=== PATIENT | female | born 1950 | race Two or more races ===

== ENCOUNTER → 2016-05-20 | Outpatient (CLI) | payer MEDICARE, BC, OTHER ==
[~2016-05-20] MED LIST: /PANT40TA OR; /WARF25TA PO; /WARF5TA PO; ACET500C OR; CALCIUM 1000 MG PO; CELE100C OR; COLA100C2 PO; METHACHOLINE KIT (J7674) INH ONE; MILKSUS PO; MULTIVIT PO; NEUR400C PO; PERC5TAB8 PO; PHEN30TA2 OR; PHEN30TA2 PO; PHEN60TA PO; [UNRECOGNIZED DRUG - OTHER] PO; stool softener PO
== END ==
LOC: M CARPUL 13:07
PROVIDERS: ATTEND Internal Medicine Pulmonary Disease
DX: R05 Cough (principal)
CPT/HCPCS: 94070; 95070; J7674

== ENCOUNTER → 2016-05-29 | Outpatient (CLI) | payer OTHER ==
[~2016-05-29] MED LIST changes: -METHACHOLINE KIT (J7674) INH ONE
== END ==
LOC: M LRY 13:37
PROVIDERS: ATTEND Physical Medicine & Rehabilitation
DX: M47.892 Other spondylosis, cervical region (principal)

== ENCOUNTER → 2016-09-30 | Outpatient (CLI) | payer MEDICARE, BC, OTHER ==
[~2016-09-30] MED LIST changes: +E-Z-GAS II EFFERVESCENT PACKET (SODIUM BICARB./CITRIC ACID/SIMETHICONE) As Ordered ONE; +E-Z-HD 98% w/w 340GM SUSP BTL As Ordered ONE; +E-Z-PAQUE 96% w/w SUSP 176GM BTL As Ordered ONE
--- NOTE | 2016-09-30 19:29 | REP ---
UPPER GI, AIR CONTRAST: The procedure was performed under the direct supervision of Dr. Rodrigues. The images were reviewed with Dr. Rodrigues. The video engineer film shows no organomegaly or pathological masses. The intestinal gas pattern is nonspecific. There is levoscoliosis. There are surgical clips noted in the right upper quadrant. Liquid barium and gas-producing granules were given in the erect position as well as liquid barium in the prone oblique position in order to perform a double contrast upper GI examination. The oral and pharyngeal stages of deglutition are unremarkable. Esophageal transport is prompt and efficient and there is no esophagitis, stricture or mucosal ring. There is a moderate sized sliding type hiatal hernia present. There is gastroesophageal reflux demonstrated to the level of the thoracic inlet. The stomach grant are normally outlined. There is a small gastric diverticulum seen in the fundus. There is no gastritis, neoplasm or ulcer disease. The duodenal grant are normally outlined. The mucosal folds are smooth and regular. There is no duodenitis, pancreatitis, peptic ulcer disease or neoplasm. The visualized portion of the proximal small bowel appears normal in course and caliber. IMPRESSION: 1. There is a moderate sized sliding type hiatal hernia present. There is gastroesophageal reflux demonstrated to the level of the thoracic inlet. 2. There is a small gastric diverticulum seen in the fundus of the stomach. 3 minutes and 27 seconds of fluoroscopy time was utilized for this procedure. Reviewed by MERI Adamson 09/30/2016 07:34 PEdited and Signed by Cameron Rodrigues MD 10/01/2016 09:03 A
== END ==
LOC: M RAD 09:42
PROVIDERS: ATTEND Nurse Practitioner Family
DX: R13.14 Dysphagia, pharyngoesophageal phase (principal)

== ENCOUNTER 2017-02-17 10:50 | Outpatient (CLI) | payer MEDICARE, BC, OTHER ==
[~2017-02-17] VITALS: Ht 152.4 cm; Wt 82.6 kg
[~2017-02-17 10:50] MED LIST changes: +BREO1INH INH; +DULO1CAP3 PO; -E-Z-GAS II EFFERVESCENT PACKET (SODIUM BICARB./CITRIC ACID/SIMETHICONE) As Ordered ONE; -E-Z-HD 98% w/w 340GM SUSP BTL As Ordered ONE; -E-Z-PAQUE 96% w/w SUSP 176GM BTL As Ordered ONE; +OMEP40CA2 PO; +PROAAER10 INH
[2017-02-17] MEDS ORDERED: NS 1,000 ML IV ONE (11:00)
[2017-02-17] MEDS ORDERED: LIDOCAINE 2% INJ 100 MG/5 ML SDV (FOR ANES.) As Ordered ONE (11:32)
[2017-02-17] MEDS ORDERED: PROPOFOL 200 MG/20 ML VIAL As Ordered ONE (11:32)
--- NOTE | 2017-02-17 11:49 | ROOR ---
Patient Name: Gia Ortiz Procedure Date: 02/17/2017 11:33 AM Date of : 1950 Age: 66 Room: [facility] Gender: Female Note Status: Finalized Procedure: Upper Endoscopy + Biopsies Indications: Heartburn, Follow-up of Parker's esophagus Providers: Andi Baugh MD Referring MD: DARWIN AGUILAR MD Requesting Provider: Medicines: Monitored Anesthesia Care Complications: No immediate complications. Procedure: Pre-Anesthesia Assessment: - The heart rate, respiratory rate, oxygen saturations, blood pressure, adequacy of pulmonary ventilation, and response to care were monitored throughout the procedure. The Endoscope was introduced through the mouth, and advanced to the second part of duodenum. The upper GI endoscopy was accomplished without difficulty. The patient tolerated the procedure well. Findings: The Z-line was irregular and was found 30 cm from the incisors. Multiple biopsies were obtained with cold forceps for evaluation to rule out Parker's Esophagus randomly at the gastroesophageal junction. A large hiatal hernia was present. No other significant abnormalities were identified in a careful examination of the stomach. The exam of the duodenum was otherwise normal. Impression: - Z-line irregular, 30 cm from the incisors. - Large hiatal hernia. - Multiple biopsies were obtained at the gastroesophageal junction. - The examination was otherwise normal. Recommendation: - Patient has a contact number available for emergencies. The signs and symptoms of potential delayed complications were discussed with the patient. Return to normal activities tomorrow. Written discharge instructions were provided to the patient. - High fiber diet. - Discharge patient to home. - Follow an antireflux regimen. - Continue present medications. - Await pathology results. - Telephone GI clinic for pathology results in 1 week. - Return to referring physician. - The findings and recommendations were discussed with the patient's family. Andi Baugh MD Andi Baugh MD 02/17/2017 11:49:27 AM This report has been signed electronically. Number of Addenda: 0 Note Initiated On: 02/17/2017 11:33 AM Estimated Blood Loss: Estimated blood loss: none.
[2017-02-17 12:20] VITALS: BP 134/82
== END 2017-02-17 12:40 | disposition home or self-care (01) ==
LOC: M OPP 10:50
PROVIDERS: ATTEND Internal Medicine Gastroenterology
DX: R12 Heartburn (principal); K31.89 Other diseases of stomach and duodenum; K22.8 Other specified diseases of esophagus; K44.9 Diaphragmatic hernia without obstruction or gangrene; K21.9 Gastro-esophageal reflux disease without esophagitis; K57.92 Diverticulitis of intestine, part unspecified, without perforation or abscess without bleeding; R56.9 Unspecified convulsions; M19.90 Unspecified osteoarthritis, unspecified site; M54.9 Dorsalgia, unspecified; K82.9 Disease of gallbladder, unspecified; Z78.0 Asymptomatic menopausal state; J45.909 Unspecified asthma, uncomplicated; Z96.653 Presence of artificial knee joint, bilateral; Z90.89 Acquired absence of other organs; Z88.8 Allergy status to other drugs, medicaments and biological substances; Z88.5 Allergy status to narcotic agent; Z88.3 Allergy status to other anti-infective agents; Z91.040 Latex allergy status; Z79.899 Other long term (current) drug therapy

== ENCOUNTER 2017-02-19 19:26 | Emergency (ER) | payer MEDICARE, BC, OTHER ==
[~2017-02-19] VITALS: Ht 152.4 cm; Wt 80.9 kg
[2017-02-19 19:27] VITALS: BP 157/71
[2017-02-19] MEDS ORDERED: CEPHALEXIN 500 MG CAP PO ONE (22:30)
[2017-02-19] MEDS ORDERED: ADACEL/BOOSTRIX VACCINE (DIPHTH/PERTUSS/ACELL/TETANUS)0.5ML SYR (90715) IM ONE (22:30)
[2017-02-19] MEDS ORDERED: LIDOCAINE 2% MDV 20 ML VIAL SC ONE (22:30)
[2017-02-19] MEDS ORDERED: KEFL500C17 PO (22:45)
== END 2017-02-19 23:04 | disposition home or self-care (01) ==
LOC: M ED 19:26
DX: S60.452A Superficial foreign body of right middle finger, initial encounter (principal); W45.8XXA Other foreign body or object entering through skin, initial encounter; Y92.019 Unspecified place in single-family (private) house as the place of occurrence of the external cause; Y93.89 Activity, other specified; Y99.8 Other external cause status; Z79.51 Long term (current) use of inhaled steroids; Z79.899 Other long term (current) drug therapy; Z88.8 Allergy status to other drugs, medicaments and biological substances; Z91.040 Latex allergy status

== ENCOUNTER → 2017-06-12 | Outpatient (CLI) | payer MEDICARE, BC | LOC: M WHC 12:57 | DX: Z12.31 Encounter for screening mammogram for malignant neoplasm of breast (principal) | CPT/HCPCS: 77067 ==

== ENCOUNTER → 2017-07-02 | Outpatient (CLI) | payer MEDICARE, BC, OTHER | LOC: M RAD 14:43 | DX: E04.1 Nontoxic single thyroid nodule (principal) | CPT/HCPCS: 76536 ==

== ENCOUNTER → 2017-10-08 | Outpatient (REF) | payer MEDICARE, OTHER ==
[2017-10-08 16:44] LABS: HEMOGLOBIN 13.9 g/dl (12.0-15.5); MEAN CORPUSCULAR HEMOGLOBIN 29.3 pg (27.0-33.0); MEAN CORPUSCULAR HGB CONC 33.1 g/dl (32.0-36.5); MEAN CORPUSCULAR VOLUME 88.6 fl (80.0-96.0); PLATELET COUNT, AUTOMATED 298 10^3/uL (150-450); RED BLOOD COUNT 4.74 10^6/uL (4.00-5.40); RED CELL DISTRIBUTION WIDTH 12.8 % (11.5-14.5); WHITE BLOOD COUNT 7.2 10^3/uL (4.0-10.0)
[2017-10-08 17:12] LABS: ALBUMIN 3.9 GM/DL (3.2-5.2); ALBUMIN/GLOBULIN RATIO 1.26 (1.00-1.93); ALKALINE PHOSPHATASE 66 U/L (45-117); ALT/SGPT 32 U/L (12-78); ANION GAP 7 MEQ/L (8-16); AST/SGOT 18 U/L (7-37); BILIRUBIN,TOTAL 0.4 MG/DL (0.2-1.0); BLOOD UREA NITROGEN 16 MG/DL (7-18); CARBON DIOXIDE LEVEL 28 MEQ/L (21-32); CHLORIDE LEVEL 105 MEQ/L (98-107); CHOLESTEROL LEVEL 171 MG/DL (<200); CHOLESTEROL RISK RATIO 3.288 (<5); CREATININE FOR GFR 0.74 MG/DL (0.55-1.30); FREE T4 0.94 NG/DL (0.76-1.46); GLOMERULAR FILTRATION RATE > 60.0 (>45); GLUCOSE, FASTING 97 MG/DL (70-100); HDL CHOLESTEROL 52 MG/DL (>40); LDL CHOLESTEROL 93.8 MG/DL (<100); NON-HDL-C 119 MG/DL; POTASSIUM SERUM 4.4 MEQ/L (3.5-5.1); SODIUM LEVEL 140 MEQ/L (136-145); TRIGLYCERIDES LEVEL 126 MG/DL (<150)
[2017-10-08 17:51] LABS: TOTAL 25(OH) VITAMIN D 23.5 NG/ML (30.0-100.0)
== END ==
LOC: M SFHCPLAZ 11:53
DX: J45.909 Unspecified asthma, uncomplicated (principal); E55.9 Vitamin D deficiency, unspecified; G40.802 Other epilepsy, not intractable, without status epilepticus; E78.2 Mixed hyperlipidemia; E04.1 Nontoxic single thyroid nodule
CPT/HCPCS: 84443

== ENCOUNTER → 2018-01-13 | Outpatient (REF) | payer MEDICARE, OTHER | LOC: M SFHCLERA 15:36 | DX: J02.9 Acute pharyngitis, unspecified (principal) ==

== ENCOUNTER → 2018-02-16 | Outpatient (REF) | payer MEDICARE, OTHER ==
[2018-02-16 20:57] LABS: TOTAL 25(OH) VITAMIN D 27.1 NG/ML (30.0-100.0)
== END ==
LOC: M SFHCLERA 16:48
DX: E55.9 Vitamin D deficiency, unspecified (principal)
CPT/HCPCS: 82306

== ENCOUNTER → 2018-09-30 | Outpatient (CLI) | payer MEDICARE, BC, OTHER ==
[~2018-09-30] MED LIST changes: -/PANT40TA OR; -/WARF25TA PO; -/WARF5TA PO; +COUM1TAB17 PO; +COUM1TAB18 PO; +KEFL500C17 PO; +PROT1TAB2 OR
--- NOTE | 2018-09-30 08:39 | REP ---
Left upper quadrant sonography: History: Left upper quadrant pain. Findings: Left upper quadrant scanning demonstrates a normal sized spleen with greatest diameter of 9.1 cm. There are multiple echogenic foci in the spleen parenchyma consistent with tiny calcified granulomas. No splenic mass lesion is seen. There is no evidence of ascites in the left upper quadrant. The left kidney measures 9.9 x 5.5 x 4.3 cm. Renal cortical echogenicity pattern is normal in the left kidney. No hydro nephrosis seen. Impression: No acute abnormality. Probable splenic granulomatous calcifications. Otherwise negative. Electronically Signed by Cameron Rodrigues MD 09/30/2018 08:31 A
== END ==
LOC: M RAD 07:45
PROVIDERS: ATTEND Family Medicine
DX: R10.12 Left upper quadrant pain (principal)

== ENCOUNTER → 2019-01-18 | Outpatient (REF) | payer MEDICARE, OTHER ==
[~2019-01-18] MED LIST changes: -DULO1CAP3 PO; +DULO1CAP6 PO
[2019-01-18 13:17] LABS: ALBUMIN 3.8 GM/DL (3.2-5.2); ALT/SGPT 24 U/L (12-78); BILIRUBIN,TOTAL 0.3 MG/DL (0.2-1.0); BLOOD UREA NITROGEN 17 MG/DL (7-18); CALCIUM LEVEL 9.7 MG/DL (8.8-10.2); CARBON DIOXIDE LEVEL 30 MEQ/L (21-32); CHLORIDE LEVEL 105 MEQ/L (98-107); CHOLESTEROL LEVEL 190 MG/DL (<200); CHOLESTEROL RISK RATIO 3.584 (<5); CREATININE FOR GFR 0.78 MG/DL (0.55-1.30); GLOMERULAR FILTRATION RATE > 60.0 (>45); GLUCOSE, FASTING 105 MG/DL (70-100); HDL CHOLESTEROL 53 MG/DL (>40); LDL CHOLESTEROL 94 MG/DL (<100); NON-HDL-C 137 MG/DL; POTASSIUM SERUM 4.6 MEQ/L (3.5-5.1); SODIUM LEVEL 141 MEQ/L (136-145); TOTAL 25(OH) VITAMIN D 24.4 NG/ML (30.0-100.0); TOTAL PROTEIN 7.2 GM/DL (6.4-8.2); TRIGLYCERIDES LEVEL 216 MG/DL (<150)
== END ==
LOC: M SFHCPLAZ 10:00
PROVIDERS: ATTEND Family Medicine
DX: E55.9 Vitamin D deficiency, unspecified (principal); E78.2 Mixed hyperlipidemia

== ENCOUNTER → 2019-05-24 | Outpatient (CLI) | payer MEDICARE, OTHER ==
[~2019-05-24] MED LIST changes: -OMEP40CA2 PO; +OMEP40CA97 PO
[2019-05-24 16:27] LABS: PLATELET COUNT, AUTOMATED 307 10^3/uL (150-450)
[2019-05-24 16:41] LABS: INR 1.06; PROTHROMBIN TIME 13.5 SECONDS (11.8-14.0)
== END ==
LOC: M LRY 14:39
PROVIDERS: ATTEND Physical Medicine & Rehabilitation
DX: Z01.812 Encounter for preprocedural laboratory examination (principal); M47.27 Other spondylosis with radiculopathy, lumbosacral region; Z79.51 Long term (current) use of inhaled steroids; Z79.899 Other long term (current) drug therapy

== ENCOUNTER → 2020-01-06 | Outpatient (REF) | payer MEDICARE, OTHER ==
[2020-01-06 19:17] LABS: HEMATOCRIT 40.2 % (36.0-47.0); HEMOGLOBIN 12.9 g/dl (12.0-15.5); MEAN CORPUSCULAR HEMOGLOBIN 28.8 pg (27.0-33.0); MEAN CORPUSCULAR HGB CONC 32.1 g/dl (32.0-36.5); MEAN CORPUSCULAR VOLUME 89.7 fl (80.0-96.0); PLATELET COUNT, AUTOMATED 292 10^3/uL (150-450); RED BLOOD COUNT 4.48 10^6/uL (4.00-5.40); WHITE BLOOD COUNT 6.1 10^3/uL (4.0-10.0)
[2020-01-06 19:20] LABS: ALBUMIN 3.8 GM/DL (3.2-5.2); ALT/SGPT 27 U/L (12-78); BILIRUBIN,TOTAL 0.4 MG/DL (0.2-1.0); BLOOD UREA NITROGEN 14 MG/DL (7-18); CALCIUM LEVEL 9.1 MG/DL (8.8-10.2); CARBON DIOXIDE LEVEL 28 MEQ/L (21-32); CHLORIDE LEVEL 108 MEQ/L (98-107); CHOLESTEROL LEVEL 191 MG/DL (<200); CHOLESTEROL RISK RATIO 4.244 (<5); CREATININE FOR GFR 0.68 MG/DL (0.55-1.30); GLOMERULAR FILTRATION RATE > 60.0 (>45); GLUCOSE, FASTING 106 MG/DL (70-100); HDL CHOLESTEROL 45 MG/DL (>40); LDL CHOLESTEROL 123 MG/DL (<100); NON-HDL-C 146 MG/DL; POTASSIUM SERUM 4.5 MEQ/L (3.5-5.1); SODIUM LEVEL 141 MEQ/L (136-145); TOTAL 25(OH) VITAMIN D 31.8 NG/ML (30.0-100.0); TOTAL PROTEIN 6.8 GM/DL (6.4-8.2); TRIGLYCERIDES LEVEL 116 MG/DL (<150)
== END ==
LOC: M LRY 17:41
PROVIDERS: ATTEND Family Medicine
DX: E55.9 Vitamin D deficiency, unspecified (principal); J45.909 Unspecified asthma, uncomplicated; E78.2 Mixed hyperlipidemia

== ENCOUNTER → 2020-03-08 | Outpatient (REF) | payer MEDICARE, OTHER ==
[2020-03-08 18:20] LABS: APPEARANCE, URINE CLEAR (CLEAR); BACTERIA, URINE AUTO NEGATIVE (NEGATIVE); BASO # 0.1 10^3/uL (0.0-0.2); BASO % 0.6 % (0.0-1.0); BILIRUBIN, URINE AUTO NEGATIVE (NEGATIVE); BLOOD, URINE BLOOD NEGATIVE (NEGATIVE); COLOR, URINE YELLOW (YELLOW); EOS # 0.2 10^3/uL (0.0-0.5); EOS % 1.8 % (0.0-3.0); GLUCOSE, URINE (UA) AUTO NEGATIVE (NEGATIVE); HEMATOCRIT 42.4 % (36.0-47.0); HEMOGLOBIN 13.3 g/dl (12.0-15.5); KETONE, URINE AUTO NEGATIVE (NEGATIVE); LEUKOCYTE ESTERASE, URINE AUTO NEGATIVE (NEGATIVE); LYMPH # 3.1 10^3/uL (1.5-5.0); LYMPH % 36.9 % (24.0-44.0); MEAN CORPUSCULAR HEMOGLOBIN 28.3 pg (27.0-33.0); MEAN CORPUSCULAR HGB CONC 31.4 g/dl (32.0-36.5); MEAN CORPUSCULAR VOLUME 90.2 fl (80.0-96.0); MONO # 0.8 10^3/uL (0.0-0.8); MONO % 9.2 % (0.0-5.0); MUCUS, URINE SMALL (NEGATIVE); NEUTROPHILS # 4.3 10^3/uL (1.5-8.5); NEUTROPHILS % 51.3 % (36.0-66.0); NITRITE, URINE AUTO NEGATIVE (NEGATIVE); PLATELET COUNT, AUTOMATED 320 10^3/uL (150-450); PROTEIN, URINE AUTO NEGATIVE (NEGATIVE); RBC, URINE AUTO 1 /HPF (0-3); SPECIFIC GRAVITY URINE AUTO 1.032 (1.002-1.035); SQUAMOUS EPITHELIAL CELL UR AU 0 /HPF (0-6); UROBILINOGEN, URINE AUTO 0.2 mg/dL (0.0-2.0); WBC, URINE AUTO 2 /HPF (0-3); WHITE BLOOD COUNT 8.4 10^3/uL (4.0-10.0)
[2020-03-08 18:39] LABS: BLOOD UREA NITROGEN 15 MG/DL (7-18); CALCIUM LEVEL 9.3 MG/DL (8.8-10.2); CARBON DIOXIDE LEVEL 28 MEQ/L (21-32); CHLORIDE LEVEL 107 MEQ/L (98-107); GLOMERULAR FILTRATION RATE > 60.0 (>45); GLUCOSE, FASTING 87 MG/DL (70-100); POTASSIUM SERUM 4.5 MEQ/L (3.5-5.1); SODIUM LEVEL 140 MEQ/L (136-145)
== END ==
LOC: M SFHCPLAZ 14:01
PROVIDERS: ATTEND Family Medicine
DX: Z01.818 Encounter for other preprocedural examination (principal); M51.26 Other intervertebral disc displacement, lumbar region; Z79.899 Other long term (current) drug therapy; Z23 Encounter for immunization
CPT/HCPCS: 36415; 80048; 81001; 85025; 87086; 90682; 93005; G0008; G0463

== ENCOUNTER → 2020-03-22 | Outpatient (CLI) | payer MEDICARE, BC ==
--- NOTE | 2020-03-22 16:08 | REPMRS ---
Patient History The patient states she has not had a clinical breast exam in over a year. Family history of breast cancer at age 50 or over in maternal aunt. 3D TOMOSYNTHESIS WAS PERFORMED. The [place] lifetime risk for breast cancer is 5.9%. Volpara breast density b. Digital Woman Screen Mammo: March 22, 2020 - Exam #: [id number] Bilateral CC and MLO view(s) were taken. Technologist: RT Tomasa Prior study comparison: June 12, 2017, digital woman screen mammo performed at [facility]. January 29, 2016, digital woman screen mammo performed at [facility]. FINDINGS: There are scattered fibroglandular densities. There has been no change in the appearance of the mammogram from the prior studies. There is a mild amount of residual fibroglandular tissue which is fairly symmetric. There is no interval development of dominant mass, architectural distortion, or clustered microcalcification suggestive of malignancy. Assessment: BI-RADS/ACR category 1 mammogram. Negative Mammogram. Recommendation Routine screening mammogram in 1 year (for women over age 40). This mammogram was interpreted with the aid of an FDA-approved computer-aided dectection system. Electronically Signed By: Audi Ling MD 03/22/20 [id number]
--- NOTE | 2020-03-22 16:13 | DEXA ---
INDICATION: Z13.820 SCREENING FOR OSTEOPOROSIS. COMPARISON: December 10, 2012 and October 06, 2008.. TECHNIQUE: Bone density was measured using dual-energy x-ray absorptionmetry (DEXA). FINDINGS: AP SPINE L1-L4 BMD 1.359 g/cm2 Young Adult T-Score 1.3 Age Matched Z-Score 2.9. LT FEMUR, TOTAL BMD 0.955 g/cm2 Young Adult T-Score -0.4 Age Matched Z-Score is 0.9. LT NECK BMD 0.856 g/cm2 Young Adult T-Score -1.3 Age Matched Z-Score 0.3. RT FEMUR, TOTAL BMD 1.003 g/cm2 Young Adult T-Score 0.0 Age Matched Z-Score 1.3. RT NECK BMD 0.960 g/cm2 Young Adult T-Score -0.6 Age Matched Z-Score 1.0. IMPRESSION: There is normal bone density of the spine. There is low bone density of the left hip. There is normal bone density of the right hip. The density of the spine has increased 8.7% since the initial exam on June 28, 2002. The density of the spine increased 2.7% since most recent exam on December 10, 2012. The density of the left hip has decreased 6.0% since initial exam on June 28, 2002. The density of the left hip has increased 8.9% since most recent exam on December 10, 2012. The density of the right hip has decreased 7.9% since the initial exam on June 28, 2002. The density of the right hip has increased 1.1% since the most recent exam on December 10, 2012. FOLLOW-UP: Recommendation for the next bone density exam: 2 years. <Electronically signed by Savage Rodrigues > 03/22/20 [id number]
== END ==
LOC: M WHC 15:08
PROVIDERS: ATTEND Family Medicine
DX: Z12.31 Encounter for screening mammogram for malignant neoplasm of breast (principal); Z13.820 Encounter for screening for osteoporosis; M85.9 Disorder of bone density and structure, unspecified; Z78.0 Asymptomatic menopausal state

== ENCOUNTER → 2021-02-12 | Outpatient (CLI) | payer MEDICARE, BC, OTHER ==
[~2021-02-12] MED LIST changes: +OMEP40CA4 PO; -OMEP40CA97 PO
[2021-02-12 19:59] LABS: HEMATOCRIT 39.7 % (36.0-47.0); HEMOGLOBIN 12.7 g/dl (12.0-15.5); MEAN CORPUSCULAR HEMOGLOBIN 28.3 pg (27.0-33.0); MEAN CORPUSCULAR VOLUME 88.4 fl (80.0-96.0); PLATELET COUNT, AUTOMATED 289 10^3/uL (150-450); RED BLOOD COUNT 4.49 10^6/uL (4.00-5.40); WHITE BLOOD COUNT 7.5 10^3/uL (4.0-10.0)
[2021-02-12 20:33] LABS: ALBUMIN 3.7 GM/DL (3.2-5.2); ALT/SGPT 21 U/L (12-78); BILIRUBIN,TOTAL 0.3 MG/DL (0.2-1.0); BLOOD UREA NITROGEN 14 MG/DL (7-18); CALCIUM LEVEL 9.1 MG/DL (8.8-10.2); CARBON DIOXIDE LEVEL 28 MEQ/L (21-32); CHLORIDE LEVEL 107 MEQ/L (98-107); CHOLESTEROL LEVEL 170 MG/DL (<200); CHOLESTEROL RISK RATIO 3.541 (<5); CREATININE FOR GFR 0.65 MG/DL (0.55-1.30); GLOMERULAR FILTRATION RATE > 60.0 (>45); GLUCOSE, FASTING 85 MG/DL (70-100); HDL CHOLESTEROL 48 MG/DL (>40); LDL CHOLESTEROL 85 MG/DL (<100); NON-HDL-C 122 MG/DL; POTASSIUM SERUM 4.2 MEQ/L (3.5-5.1); SODIUM LEVEL 143 MEQ/L (136-145); THYROID STIMULATING HORMONE 0.977 uIU/ML (0.358-3.740); TOTAL PROTEIN 6.7 GM/DL (6.4-8.2); TRIGLYCERIDES LEVEL 185 MG/DL (<150)
[2021-02-12 20:36] LABS: FOLATE 16.7 NG/ML; VITAMIN B12 LEVEL 376 PG/ML
== END ==
LOC: M WUC 14:48
PROVIDERS: ATTEND Family Medicine
DX: E78.2 Mixed hyperlipidemia (principal); R73.01 Impaired fasting glucose; E55.9 Vitamin D deficiency, unspecified; G60.9 Hereditary and idiopathic neuropathy, unspecified

== ENCOUNTER → 2021-02-27 | Outpatient (REF) | payer MEDICARE, BC, OTHER ==
[2021-02-27 16:35] LABS: BLOOD UREA NITROGEN 13 MG/DL (7-18); CREATININE FOR GFR 0.73 MG/DL (0.55-1.30); GLOMERULAR FILTRATION RATE > 60.0 (>45)
== END ==
LOC: M LABWUC 15:45
PROVIDERS: ATTEND Orthopaedic Surgery Orthopaedic Surgery of the Spine
DX: M54.59 Other low back pain (principal)

== ENCOUNTER → 2022-03-25 | Outpatient (CLI) | payer MEDICARE, BC, OTHER ==
[2022-03-25 20:02] LABS: HEMATOCRIT 39.5 % (36.0-47.0); HEMOGLOBIN 12.5 g/dl (12.0-15.5); MEAN CORPUSCULAR HGB CONC 31.6 g/dl (32.0-36.5); MEAN CORPUSCULAR VOLUME 88.4 fl (80.0-96.0); PLATELET COUNT, AUTOMATED 324 10^3/uL (150-450); RED BLOOD COUNT 4.47 10^6/uL (4.00-5.40); WHITE BLOOD COUNT 8.2 10^3/uL (4.0-10.0)
[2022-03-25 20:26] LABS: ALBUMIN 3.7 GM/DL (3.2-5.2); ALT/SGPT 21 U/L (12-78); BILIRUBIN,TOTAL 0.3 MG/DL (0.2-1.0); BLOOD UREA NITROGEN 11 MG/DL (7-18); CALCIUM LEVEL 9.3 MG/DL (8.8-10.2); CARBON DIOXIDE LEVEL 29 MEQ/L (21-32); CHLORIDE LEVEL 107 MEQ/L (98-107); CHOLESTEROL LEVEL 180 MG/DL (<200); CHOLESTEROL RISK RATIO 3.272 (<5); CREATININE FOR GFR 0.71 MG/DL (0.55-1.30); GLOMERULAR FILTRATION RATE > 60.0 (>45); GLUCOSE, FASTING 94 MG/DL (70-100); HDL CHOLESTEROL 55 MG/DL (>40); HEMOGLOBIN A1c 6.1 %; LDL CHOLESTEROL 90 MG/DL (<100); NON-HDL-C 125 MG/DL; SODIUM LEVEL 140 MEQ/L (136-145); TOTAL PROTEIN 7.1 GM/DL (6.4-8.2); TRIGLYCERIDES LEVEL 175 MG/DL (<150)
[2022-03-25 20:55] LABS: TOTAL 25(OH) VITAMIN D 32.8 NG/ML (30.0-100.0)
== END ==
LOC: M WUC 15:21
PROVIDERS: ATTEND Family Medicine
DX: R73.01 Impaired fasting glucose (principal); E78.2 Mixed hyperlipidemia; E55.9 Vitamin D deficiency, unspecified; G47.33 Obstructive sleep apnea (adult) (pediatric); Z79.899 Other long term (current) drug therapy

== ENCOUNTER 2022-07-18 14:58 | Emergency (ER) | payer MEDICARE, BC, OTHER ==
[~2022-07-18] VITALS: Ht 152.4 cm; Wt 84.9 kg
[2022-07-18 17:04] LABS: BASO % 0.5 % (0.0-1.0); EOS # 0.2 10^3/uL (0.0-0.5); EOS % 1.7 % (0.0-3.0); HEMATOCRIT 41.5 % (36.0-47.0); HEMOGLOBIN 13.5 g/dl (12.0-15.5); LYMPH # 3.5 10^3/uL (1.5-5.0); MEAN CORPUSCULAR HEMOGLOBIN 27.8 pg (27.0-33.0); MEAN CORPUSCULAR HGB CONC 32.5 g/dl (32.0-36.5); MEAN CORPUSCULAR VOLUME 85.6 fl (80.0-96.0); MONO # 0.9 10^3/uL (0.0-0.8); MONO % 10.1 % (2.0-8.0); NEUTROPHILS # 4.1 10^3/uL (1.5-8.5); NEUTROPHILS % 47.5 % (36.0-66.0); PLATELET COUNT, AUTOMATED 302 10^3/uL (150-450); RED BLOOD COUNT 4.85 10^6/uL (4.00-5.40); WHITE BLOOD COUNT 8.7 10^3/uL (4.0-10.0)
[2022-07-18 17:10] LABS: INR 0.96; PARTIAL THROMBOPLASTIN TIME 26.5 SECONDS (24.8-34.2)
[2022-07-18 17:37] LABS: ALBUMIN 3.8 G/DL (3.2-5.2); ALKALINE PHOSPHATASE 59 U/L (46-116); ALT/SGPT 20 U/L (7.0-40); AST/SGOT 17 U/L (<34); BILIRUBIN,DIRECT < 0.1 MG/DL (<0.4); BILIRUBIN,TOTAL 0.2 MG/DL (0.3-1.2); BLOOD UREA NITROGEN 14 MG/DL (9-23); CALCIUM LEVEL 9.2 MG/DL (8.3-10.6); CARBON DIOXIDE LEVEL 28 MMOL/L (20-31); CHLORIDE LEVEL 106 MMOL/L (98-107); CK-MB VALUE MASS < 1.0 NG/ML (<3.6); CPK CREATINE PHOSPHOKINASE 118 U/L (34-145); CREATININE FOR GFR 0.54 MG/DL (0.55-1.30); FREE T4 0.95 NG/DL (0.89-1.76); GLOMERULAR FILTRATION RATE > 60.0 (>45); GLUCOSE, FASTING 90 MG/DL (74-106); LIPASE 33 U/L (12-53); MB/CK RELATIVE INDEX 0.84 (< OR =4); POTASSIUM SERUM 4.1 MMOL/L (3.5-5.1); SODIUM LEVEL 142 MMOL/L (136-145); THYROID STIMULATING HORMONE 1.303 uIU/ML (0.55-4.78); TOTAL PROTEIN 7.1 G/DL (5.7-8.2)
[2022-07-18 18:21] LABS: CK-MB VALUE MASS 1.2 NG/ML (<3.6); CPK CREATINE PHOSPHOKINASE 141 U/L (34-145); MB/CK RELATIVE INDEX 0.85 (< OR =4)
[2022-07-18] MEDS ORDERED: diphenhydrAMINE 50MG/ML VIAL IV STA (18:33)
[2022-07-18] MEDS ORDERED: methylPREDNISolone 125MG 2ML VIAL IV ONE (18:35)
[2022-07-18] MEDS ORDERED: ISOVUE-370 76% 100ML VIAL As Ordered ONE (19:01)
[2022-07-18 20:45] VITALS: BP 127/70
== END 2022-07-18 21:09 | disposition home or self-care (01) ==
LOC: M ED 14:58
DX: N28.89 Other specified disorders of kidney and ureter (principal); R07.89 Other chest pain; K44.9 Diaphragmatic hernia without obstruction or gangrene; K76.0 Fatty (change of) liver, not elsewhere classified; K21.9 Gastro-esophageal reflux disease without esophagitis; Z82.49 Family history of ischemic heart disease and other diseases of the circulatory system; Z79.899 Other long term (current) drug therapy; Z88.3 Allergy status to other anti-infective agents; Z88.8 Allergy status to other drugs, medicaments and biological substances; Z91.040 Latex allergy status
CPT/HCPCS: 71045; 71275; 80048; 80076; 82550; 82553; 83690; 84439; 84443; 84484; 85025; 85610; 85730; 93005; 93041; 93971; 94760; 96374; 96375; 99285; J1200; J2930; Q9967

== ENCOUNTER → 2022-10-21 | Outpatient (CLI) | payer MEDICARE, BC, OTHER | LOC: M WHC 15:09 | PROVIDERS: ATTEND Family Medicine | DX: Z12.31 Encounter for screening mammogram for malignant neoplasm of breast (principal) ==

== ENCOUNTER → 2023-03-13 | Outpatient (CLI) | payer MEDICARE, BC, OTHER ==
[2023-03-13 17:43] LABS: HEMOGLOBIN 13.1 g/dl (12.0-15.5); MEAN CORPUSCULAR HEMOGLOBIN 27.6 pg (27.0-33.0); MEAN CORPUSCULAR VOLUME 86.3 fl (80.0-96.0); PLATELET COUNT, AUTOMATED 292 10^3/uL (150-450); RED BLOOD COUNT 4.75 10^6/uL (4.00-5.40); WHITE BLOOD COUNT 8.5 10^3/uL (4.0-10.0)
[2023-03-13 18:03] LABS: CHOLESTEROL RISK RATIO 3.22 (<5); HDL CHOLESTEROL 55.2 MG/DL (>40); NON-HDL-C 122.8 MG/DL
[2023-03-13 18:47] LABS: HEMOGLOBIN A1c 5.6 % (4.0-6.0)
== END ==
LOC: M WUC 13:37
PROVIDERS: ATTEND Family Medicine
DX: R73.01 Impaired fasting glucose (principal); E78.2 Mixed hyperlipidemia; G47.33 Obstructive sleep apnea (adult) (pediatric)

== ENCOUNTER → 2024-03-22 | Outpatient (CLI) | payer MEDICARE, BC, OTHER ==
[2024-03-22 20:02] LABS: ALBUMIN 3.7 G/DL (3.2-5.2); ALKALINE PHOSPHATASE 61 U/L (35-104); ALT/SGPT 17 U/L (7.0-40); AST/SGOT 14 U/L (<34); BILIRUBIN,TOTAL 0.3 MG/DL (0.3-1.2); BLOOD UREA NITROGEN 14 MG/DL (9-23); CALCIUM LEVEL 10.3 MG/DL (8.3-10.6); CARBON DIOXIDE LEVEL 30 MMOL/L (20-31); CHLORIDE LEVEL 106 MMOL/L (98-107); CHOLESTEROL LEVEL 184 MG/DL (<200); CHOLESTEROL RISK RATIO 3.75 (<5); CREATININE FOR GFR 0.74 MG/DL (0.55-1.30); GLOMERULAR FILTRATION RATE > 60.0 (>39); GLUCOSE, FASTING 81 MG/DL (74-106); HEMATOCRIT 40.4 % (36.0-47.0); HEMOGLOBIN 12.9 g/dl (12.0-15.5); LDL CHOLESTEROL 92.6 MG/DL (<100); MEAN CORPUSCULAR HEMOGLOBIN 27.7 pg (27.0-33.0); MEAN CORPUSCULAR HGB CONC 31.9 g/dl (32.0-36.5); MEAN CORPUSCULAR VOLUME 86.7 fl (80.0-96.0); PLATELET COUNT, AUTOMATED 319 10^3/uL (150-450); POTASSIUM SERUM 4.4 MMOL/L (3.5-5.1); RED BLOOD COUNT 4.66 10^6/uL (4.00-5.40); SODIUM LEVEL 140 MMOL/L (136-145); TOTAL PROTEIN 7.3 G/DL (5.7-8.2); TRIGLYCERIDES LEVEL 212 MG/DL (<150)
[2024-03-22 20:03] LABS: FOLATE 20.2 NG/ML (>5.4)
[2024-03-22 20:04] LABS: TOTAL 25(OH) VITAMIN D 40.3 NG/ML (20.0-100.0); VITAMIN B12 LEVEL 460 PG/ML (211-911)
== END ==
LOC: M WUC 15:47
PROVIDERS: ATTEND Family Medicine
DX: E78.2 Mixed hyperlipidemia (principal); R73.01 Impaired fasting glucose; E55.9 Vitamin D deficiency, unspecified; G47.33 Obstructive sleep apnea (adult) (pediatric)

== ENCOUNTER → 2024-05-10 | Outpatient (CLI) | payer MEDICARE, BC ==
[~2024-05-10] MED LIST changes: +NABU-73 PO; +OMEP40CA5 PO; +PREG75CA3 PO
== END ==
LOC: M WHC 10:38
PROVIDERS: ATTEND Family Medicine
DX: R10.9 Unspecified abdominal pain (principal); K76.0 Fatty (change of) liver, not elsewhere classified

== ENCOUNTER 2024-05-25 12:20 | Day surgery (SDC) | payer MEDICARE, BC ==
[~2024-05-25] VITALS: Ht 152.4 cm; Wt 81.2 kg
[2024-05-25] MEDS ORDERED: LIDOCAINE 2% 100MG/5ML SDV (FOR ANES.) As Ordered ONE (13:56)
[2024-05-25] MEDS ORDERED: GLYCOPYRROLATE INJ 0.2 MG/ML 2 ML VIAL As Ordered ONE (13:56)
[2024-05-25] MEDS ORDERED: propofoL 200 MG/20 ML VIAL As Ordered ONE (13:58)
[2024-05-25] MEDS ORDERED: METOPROLOL 5 MG/5 ML VIAL As Ordered ONE (14:14)
[2024-05-25 14:22] VITALS: TEMP 97.1
[2024-05-25 14:50] VITALS: BP 144/85; O2SAT 94
== END 2024-05-25 15:05 | disposition home or self-care (01) ==
LOC: M OPP 12:20
PROVIDERS: ATTEND Internal Medicine Gastroenterology
DX: Z12.11 Encounter for screening for malignant neoplasm of colon (principal); D12.3 Benign neoplasm of transverse colon; K57.30 Diverticulosis of large intestine without perforation or abscess without bleeding; K64.0 First degree hemorrhoids; R12 Heartburn; K22.89 Other specified disease of esophagus; K44.9 Diaphragmatic hernia without obstruction or gangrene
CPT/HCPCS: 43239; 45385; 88305; J1596

== ENCOUNTER → 2024-09-23 | Outpatient (CLI) | payer MEDICARE, BC | LOC: M WHC 17:20 | PROVIDERS: ATTEND Family Medicine | DX: Z13.820 Encounter for screening for osteoporosis (principal); Z53.9 Procedure and treatment not carried out, unspecified reason ==

== ENCOUNTER → 2024-10-04 | Outpatient (CLI) | payer MEDICARE, BC | LOC: M WHC 14:00 | PROVIDERS: ATTEND Family Medicine | DX: Z13.820 Encounter for screening for osteoporosis (principal); Z78.0 Asymptomatic menopausal state ==

== ENCOUNTER → 2025-03-15 | Outpatient (CLI) | payer MEDICARE, BC | LOC: M WHC 15:47 | PROVIDERS: ATTEND Nurse Practitioner Family | DX: Z12.31 Encounter for screening mammogram for malignant neoplasm of breast (principal); R92.313 Mammographic fatty tissue density, bilateral breasts ==

== ENCOUNTER → 2025-03-15 | Outpatient (REF) | payer MEDICARE, OTHER ==
[2025-03-19 03:08] LABS: HPV APTIMA Not Detected (Not Detected)
== END ==
LOC: M SFHCWAGY 17:29
PROVIDERS: ATTEND Nurse Practitioner Family
DX: Z12.4 Encounter for screening for malignant neoplasm of cervix (principal); R87.610 Atypical squamous cells of undetermined significance on cytologic smear of cervix (ASC-US)
CPT/HCPCS: 87624; G0123

== ENCOUNTER → 2025-03-16 | Outpatient (REF) | payer MEDICARE, BC | LOC: M SFHCPLAZ 15:15 | PROVIDERS: ATTEND Family Medicine | DX: L72.0 Epidermal cyst (principal) ==

== ENCOUNTER → 2025-03-23 | Outpatient (CLI) | payer MEDICARE, BC ==
[2025-03-23 18:16] LABS: PLATELET COUNT, AUTOMATED 313 10^3/uL (150-450)
[2025-03-23 18:21] LABS: ALT/SGPT 19 U/L (7.0-40); AST/SGOT 22 U/L (<34); CALCIUM LEVEL 9.4 MG/DL (8.3-10.6); CARBON DIOXIDE LEVEL 28 MMOL/L (20-31); CHLORIDE LEVEL 103 MMOL/L (98-107); CHOLESTEROL LEVEL 185 MG/DL (<200); CHOLESTEROL RISK RATIO 3.66 (<5); CREATININE FOR GFR 0.60 MG/DL (0.55-1.30); GLOMERULAR FILTRATION RATE > 90.0 (>39); LDL CHOLESTEROL 70.7 MG/DL (<100); NON-HDL-C 134.5 MG/DL; POTASSIUM SERUM 4.3 MMOL/L (3.5-5.1); SODIUM LEVEL 139 MMOL/L (136-145); TRIGLYCERIDES LEVEL 319 MG/DL (<150)
[2025-03-23 18:23] LABS: VITAMIN B12 LEVEL 375 PG/ML (211-911)
[2025-03-23 18:57] LABS: ESTIMATED AVERAGE GLUCOSE 137.0 MG/DL (60-110)
== END ==
LOC: M WUC 13:40
PROVIDERS: ATTEND Family Medicine
DX: G62.9 Polyneuropathy, unspecified (principal); R73.01 Impaired fasting glucose; K76.0 Fatty (change of) liver, not elsewhere classified; E78.2 Mixed hyperlipidemia; E55.9 Vitamin D deficiency, unspecified; G47.33 Obstructive sleep apnea (adult) (pediatric); K21.9 Gastro-esophageal reflux disease without esophagitis